=== PATIENT | female | born 1985 | race African-American/Black ===

== ENCOUNTER 2017-02-19 10:28 | Emergency (ER) | payer MEDICAID ==
[~2017-02-19] VITALS: Ht 167.6 cm; Wt 63.5 kg
[2017-02-19 11:00] VITALS: BP 121/72
== END 2017-02-19 11:31 | disposition left against medical advice (07) ==
LOC: ER 10:28
DX: R10.9 Unspecified abdominal pain (principal); Z53.21 Procedure and treatment not carried out due to patient leaving prior to being seen by health care provider

== ENCOUNTER 2017-09-02 08:57 | Emergency (ER) | payer MEDICAID ==
[~2017-09-02] VITALS: Ht 170.2 cm; Wt 68.5 kg
[2017-09-02] MEDS ORDERED: SODIUM CHLORIDE 0.9% 1,000 ML IV ONE ×2 (09:34)
[2017-09-02 09:56] LABS: Basophils # (auto) 0 uL; Basophils % (auto) 0.3 % (0.0-2.0); Eosinophils # (auto) 0 uL; Eosinophils % (auto) 0.9 % (0.0-7.0); Hematocrit 43.3 % (36.0-46.0); Hemoglobin 14.6 g/dL (12.2-16.2); Lymphocytes # (auto) 2.1 uL; Lymphocytes % (auto) 41.5 % (10.0-50.0); Mean Corpuscular Hemoglobin 32.8 pg (28.0-32.0); Mean Corpuscular Hgb Conc. 33.8 g/dL (32.0-36.0); Mean Corpuscular Volume 96.8 fL (80.0-100.0); Monocytes # (auto) 0.4 uL; Monocytes % (auto) 8.5 % (0.0-12.0); Neutrophils # (auto) 2.5 uL; Neutrophils % (auto) 48.8 % (37.0-80.0); Nucleated Red Blood Cells % 0.2 %; Platelet Count (auto) 269 10^3/uL (140-450); Red Blood Cells 4.47 10^6/uL (4.0-5.20); Red Cell Distribution Width 12.7 % (11.8-14.3)
[2017-09-02 10:59] LABS: Urine Bacteria NONE SEEN /hpf (None Seen); Urine Blood Negative /uL (Negative); Urine Specific Gravity 1.009 (1.001-1.035); Urine WBC <1 /hpf (0 - 5)
[2017-09-02 11:45] VITALS: BP 124/80
== END 2017-09-02 18:00 | disposition home or self-care (01) ==
LOC: ER 08:57
DX: R10.9 Unspecified abdominal pain (principal); R11.0 Nausea
CPT/HCPCS: 36415; 74176; 81001; 81025; 84702; 85025; 96360; 99285; J7030

== ENCOUNTER 2019-05-10 09:24 | Emergency (ER) | payer MEDICAID ==
[~2019-05-10] VITALS: Ht 167.6 cm; Wt 64.4 kg
[2019-05-10 09:33] VITALS: BP 116/67
[2019-05-10 13:03] LABS: Urine Bacteria FEW /hpf (None Seen); Urine Blood Negative /uL (Negative); Urine Mucus FEW (None Seen); Urine Specific Gravity 1.028 (1.001-1.035); Urine WBC 2 /hpf (0 - 5)
== END 2019-05-10 14:56 | disposition home or self-care (01) ==
LOC: ER 09:24
DX: O23.41 Unspecified infection of urinary tract in pregnancy, first trimester (principal); Z3A.01 Less than 8 weeks gestation of pregnancy
CPT/HCPCS: 36415; 76801; 81001; 84702

== ENCOUNTER 2021-02-17 19:12 | Emergency (ER) | payer SELFPAY ==
[~2021-02-17] VITALS: Ht 167.6 cm; Wt 59.0 kg
[2021-02-17 19:18] VITALS: BP 124/54
== END 2021-02-18 01:09 | disposition left against medical advice (07) ==
LOC: ER 19:17
DX: S50.01XA Contusion of right elbow, initial encounter (principal); W19.XXXA Unspecified fall, initial encounter; Y93.51 Activity, roller skating (inline) and skateboarding; Y92.89 Other specified places as the place of occurrence of the external cause; Y99.8 Other external cause status
CPT/HCPCS: 73070

== ENCOUNTER 2023-09-01 12:42 | Emergency (ER) | payer MEDICAID ==
[~2023-09-01] VITALS: Ht 167.6 cm; Wt 60.0 kg
[2023-09-01 13:33] VITALS: BP 95/68; PULSE 70; RESP 16; O2SAT 97
[2023-09-01] MEDS: GLUCAGON EMERG KIT 1mg/1ml IM ONE (18:34)
[2023-09-01] MEDS ORDERED: PRED20TA2 PO (18:34)
== END 2023-09-01 19:09 | disposition home or self-care (01) ==
LOC: ER 12:42
DX: R07.0 Pain in throat (principal)
CPT/HCPCS: 70360; 96372; 99283; J1610

== ENCOUNTER 2024-02-28 20:45 | Emergency (ER) | payer MEDICAID ==
[~2024-02-28] VITALS: Ht 167.6 cm; Wt 78.3 kg
[~2024-02-28 20:45] MED LIST: AUG875T PO; CARB0.5D28 OP; MOXI0.5D9 OP
[2024-02-28 21:07] LABS: Basophils # (auto) 0.1 10 ^3/uL (0-0.2); Basophils % (auto) 0.6 % (0.0-2.0); Eosinophils # (auto) 0.1 10 ^3/uL (0-0.8); Eosinophils % (auto) 0.9 % (0.0-7.0); Hematocrit 40.1 % (36.0-46.0); Hemoglobin 13.9 g/dL (12.2-16.2); Lymphocytes # (auto) 2.8 10 ^3/uL (0.4-5.4); Lymphocytes % (auto) 24.8 % (10.0-50.0); Mean Corpuscular Hemoglobin 32.4 pg (28.0-32.0); Mean Corpuscular Hgb Conc. 34.6 g/dL (32.0-36.0); Mean Corpuscular Volume 93.7 fL (80.0-100.0); Monocytes # (auto) 0.6 10 ^3/uL (0-1.3); Monocytes % (auto) 5.6 % (0.0-12.0); Neutrophils # (auto) 7.6 10 ^3/uL (1.6-8.6); Neutrophils % (auto) 68.1 % (37.0-80.0); Nucleated Red Blood Cells % 0.1 %; Platelet Count (auto) 279 10^3/uL (140-450); Red Blood Cells 4.28 10^6/uL (4.0-5.20); Red Cell Distribution Width 12.5 % (11.8-14.3); White Blood Cell 11.2 10^3/uL (4.4-10.8)
[2024-02-28 21:12] LABS: Chloride 106 mmol/L (98-107); Potassium 3.8 mmol/L (3.5-5.1); Sodium 140 mmol/L (136-145)
[2024-02-28 21:13] LABS: Anion Gap 8 (5-15); Carbon Dioxide 26 mmol/L (20-30)
[2024-02-28 21:14] LABS: Calcium 9.7 mg/dL (8.7-10.4)
[2024-02-28 21:18] LABS: BUN/Creatinine Ratio 10.3 (10.0-20.0); Blood Urea Nitrogen 9 mg/dL (9-23); Glucose 116 mg/dL (74-106)
[2024-02-28 22:55] VITALS: BP 118/67; PULSE 79; RESP 17; TEMP 98.7; O2SAT 100
[2024-02-28 23:24] LABS: Urine Bacteria FEW /hpf (None Seen); Urine Blood Negative /uL (Negative); Urine Clarity Clear (Clear); Urine Color Yellow (Yellow); Urine Mucus FEW (None Seen); Urine Protein, UAD TRACE (Negative); Urine Specific Gravity 1.038 (1.001-1.035); Urine Urobilinogen 2 mg/dL (Negative); Urine WBC 2 /hpf (0 - 5)
[2024-02-28] MEDS ORDERED: CEPH250C PO (23:51)
== END 2024-02-29 | disposition home or self-care (01) ==
LOC: ER 20:45
DX: F43.9 Reaction to severe stress, unspecified (principal); R82.71 Bacteriuria; R51.9 Headache, unspecified
CPT/HCPCS: 36415; 71045; 80048; 81001; 85025; 85379